=== PATIENT | female | born 1995 | race African-American/Black ===

== ENCOUNTER 2020-05-22 20:49 | Emergency (ER) | payer MEDICAID ==
[~2020-05-22] VITALS: Ht 160 cm; Wt 52.0 kg
[2020-05-22] MEDS ORDERED: ONDANSETRON 4MG ODT PO STA (21:52)
[2020-05-22] MEDS ORDERED: ACETAMINOPHEN WITH CODEINE 300/30MG TABLET PO STA (21:52)
[2020-05-22 22:35] LABS: CLARITY URINE CLOUDY (CLEAR); COLOR URINE YELLOW (YELLOW); KETONES URINE TRACE (NEGATIVE); LEUKOCYTE ESTERASE URINE 1+ (NEGATIVE); NITRITE URINE NEGATIVE (NEGATIVE); OCCULT BLOOD URINE 2+ (NEGATIVE); PROTEIN URINE 1+ (NEGATIVE); SPECIFIC GRAVITY URINE 1.034 (1.005-1.030)
[2020-05-22 23:24] LABS: CHLORIDE 104 mEq/L (98-107)
[2020-05-22 23:28] LABS: BASOPHILS % 0.8 % (0.0-2.0); EOSINOPHILS % 1.6 % (0.0-5.0); HEMATOCRIT. 43.7 % (36.0-48.0); HEMOGLOBIN. 14.6 g/dL (12.0-16.0); LYMPHOCYTES % 33.5 % (20.0-50.0); MEAN CORPUSCULAR HEMOGLOBIN 30.4 pg (28.0-32.0); MEAN CORPUSCULAR VOLUME 91.1 fL (81.0-99.0); MEAN PLATELET VOLUME 8.4 fl (7.4-10.4); MONOCYTES % 9.6 % (2.0-8.0); NEUTROPHILS % 54.5 % (40.0-76.0); PLATELET 183 x1000/uL (130-400)
[2020-05-22 23:43] LABS: HCG SCREEN NEGATIVE
[2020-05-22] MEDS ORDERED: MORPHINE SULFATE 4 MG/ML CPJ (NOT FOR IM USE) IV ONE (23:45)
[2020-05-23] MEDS ORDERED: CEFTRIAXONE SODIUM 1 G/VIAL IM ONE (00:45)
[2020-05-23] MEDS ORDERED: LIDOCAINE HCL 1% 20ML VIAL (Pyxis) INJ INFIL ONE (00:45)
[2020-05-23] MEDS ORDERED: KETOROLAC 15MG/ML VIAL IV ONE (00:45)
[2020-05-23 01:51] VITALS: BP 128/81
[2020-05-27 04:09] LABS: NEISSERIA GONORRHOEAE NAA Negative (Negative)
== END 2020-05-23 02:13 | disposition home or self-care (01) ==
LOC: ER 20:49
DX: R10.2 Pelvic and perineal pain (principal); N73.0 Acute parametritis and pelvic cellulitis; Z11.3 Encounter for screening for infections with a predominantly sexual mode of transmission
CPT/HCPCS: 36415; 80053; 81003; 81025; 84703; 85025; 87491; 87591; 93005; 96372; 96374; 96375; 99284; J0696; J1885; J2270; J3490; Q0162